=== PATIENT | female | born 1940 | race Caucasian/White ===

== ENCOUNTER 2017-10-14 17:25 | Inpatient (IN) | payer OTHER ==
[2017-10-14] MEDS: LACTATED RINGER'S 1,000 ML IV (18:08)
[2017-10-14 18:12] LABS: ADD MAN DIFF? NO
[2017-10-14 18:14] LABS: BASOPHIL # 0.1 10^3/ul (0.0-0.1); BASOPHILS % 0.5 % (0.0-2.0); EOSINOPHILS # 0.1 10^3/ul (0.0-0.5); HEMATOCRIT 37.2 % (37.0-47.0); HEMOGLOBIN 12.8 g/dl (12.0-16.0); LYMPHOCYTES # 1.5 10^3/ul (0.8-2.9); LYMPHOCYTES % 12.1 % (15.0-51.0); MEAN CORPUSCULAR HEMOGLOBIN 31.3 pg (29.0-33.0); MEAN CORPUSCULAR HGB CONC 34.4 g/dl (32.0-37.0); MONOCYTE # 0.7 10^3/ul (0.3-0.9); MONOCYTES % 5.4 % (0.0-11.0); NEUTROPHIL # 9.6 10^3/ul (1.6-7.5); NEUTROPHILS % 80.7 % (39.0-77.0); PLATELET COUNT 265 10^3/UL (140-415); RED BLOOD COUNT 4.09 10^6/ul (4.20-5.40); RED CELL DISTRIBUTION WIDTH 12.9 % (11.5-14.5)
[2017-10-14 18:34] LABS: ALANINE AMINOTRANSFERASE 20 IU/L (13-69); ALBUMIN 3.6 g/dl (3.3-4.9); ALBUMIN/GLOBULIN RATIO 1.24; ALKALINE PHOSPHATASE 56 IU/L (42-121); ANION GAP 10 (8-16); ASPARTATE AMINO TRANSFERASE 17 IU/L (15-46); BILIRUBIN,INDIRECT 0.6 mg/dl (0-1.1); BILIRUBIN,TOTAL 0.6 mg/dl (0.2-1.3); BLOOD UREA NITROGEN 13 mg/dl (7-20); CALCIUM 9.7 mg/dl (8.4-10.2); CARBON DIOXIDE 29 mmol/L (21-31); CHLORIDE 100 mmol/L (97-110); CREATININE 0.69 mg/dl (0.44-1.00); GLUCOSE 159 mg/dl (70-220); POTASSIUM 4.7 mmol/L (3.5-5.1); SODIUM 134 mmol/L (135-144); TOTAL PROTEIN 6.5 g/dl (6.1-8.1)
[2017-10-14 18:35] LABS: URINE BLOOD (Dip) POC Negative (NEGATIVE); URINE GLUCOSE (Dip) POC Negative (NEGATIVE); URINE KETONES (Dip) POC Negative (NEGATIVE); URINE LEUKOCYTE EST (Dip) POC Negative (NEGATIVE); URINE NITRITE (Dip) POC Negative (NEGATIVE); URINE TOTAL PROTEIN POC Negative (NEGATIVE)
[2017-10-14 18:54] LABS: TROPONIN-I < 0.010 ng/ml (0.000-0.120)
[2017-10-14] MEDS ORDERED: NACL 0.9% 3 ML SYG IV (22:00)
[2017-10-15] MEDS ORDERED: clonAZEPAM 0.5 MG TAB PO (06:00)
[2017-10-15 06:17] LABS: ADD MAN DIFF? NO
[2017-10-15 06:30] LABS: WHITE BLOOD COUNT 7.4 10^3/ul (4.8-10.8)
[2017-10-15 06:30] LABS: BASOPHIL # 0.1 10^3/ul (0.0-0.1); BASOPHILS % 1.1 % (0.0-2.0); EOSINOPHILS # 0.4 10^3/ul (0.0-0.5); EOSINOPHILS % 5.2 % (0.0-7.0); HEMATOCRIT 37.9 % (37.0-47.0); HEMOGLOBIN 12.9 g/dl (12.0-16.0); LYMPHOCYTES # 2.2 10^3/ul (0.8-2.9); MEAN CORPUSCULAR HEMOGLOBIN 31.6 pg (29.0-33.0); MEAN CORPUSCULAR VOLUME 92.9 fl (82.0-101.0); MEAN PLATELET VOLUME 10.1 fl (7.4-10.4); MONOCYTE # 0.6 10^3/ul (0.3-0.9); MONOCYTES % 8.7 % (0.0-11.0); NEUTROPHILS % 54.5 % (39.0-77.0); PLATELET COUNT 260 10^3/UL (140-415); RED BLOOD COUNT 4.08 10^6/ul (4.20-5.40); RED CELL DISTRIBUTION WIDTH 12.9 % (11.5-14.5)
[2017-10-15 06:46] LABS: ALANINE AMINOTRANSFERASE 26 IU/L (13-69); ALBUMIN 3.2 g/dl (3.3-4.9); ALBUMIN/GLOBULIN RATIO 1.14; ALKALINE PHOSPHATASE 53 IU/L (42-121); ANION GAP 6 (8-16); ASPARTATE AMINO TRANSFERASE 17 IU/L (15-46); BILIRUBIN,INDIRECT 0.9 mg/dl (0-1.1); BILIRUBIN,TOTAL 0.9 mg/dl (0.2-1.3); BLOOD UREA NITROGEN 10 mg/dl (7-20); CALCIUM 9.3 mg/dl (8.4-10.2); CARBON DIOXIDE 31 mmol/L (21-31); CHLORIDE 104 mmol/L (97-110); CHOL/HDL RATIO 3.9 RATIO; CHOLESTEROL 163 mg/dl (100-200); CREATININE 0.75 mg/dl (0.44-1.00); GLUCOSE 124 mg/dl (70-220); HDL CHOLESTEROL 41 mg/dl (33-92); LDL CHOLESTEROL,CALCULATED 108 mg/dl; MAGNESIUM 1.7 mg/dl (1.7-2.5); POTASSIUM 4.9 mmol/L (3.5-5.1); SODIUM 136 mmol/L (135-144); TRIGLYCERIDES 71 mg/dl (0-149)
[2017-10-15 09:33] LABS: HEMOGLOBIN A1C 6.6 % (0-5.9)
[2017-10-15] MEDS: DULOXETINE 30 MG CAP DR PO (10:47)
[2017-10-15] MEDS: TIOTROPIUM 18 MCG CAPSULE INHA DEV INH (10:47)
[2017-10-15] MEDS: OXYBUTYNIN (XL) 5 MG TAB PO (10:48)
[2017-10-15] MEDS: AMLODIPINE 10 MG TAB PO (10:48)
[2017-10-15] MEDS: HEPARIN 5,000 UNIT/0.5 ML VIAL SC ×2 (10:50→21:04)
[2017-10-15] MEDS: ACETAMINOPHEN 325 MG TAB PO (11:08)
[2017-10-15] MEDS: clonAZEPAM 0.5 MG TAB PO (11:08)
[2017-10-15] MEDS: metFORMIN 500 MG TAB PO ×2 (13:36→17:42)
[2017-10-15] MEDS: HYDROCODONE/APAP (5/325) TAB PO ×2 (14:39→20:49)
[2017-10-16] MEDS: clonAZEPAM 0.5 MG TAB PO (01:12)
[2017-10-16] MEDS: HYDROCODONE/APAP (5/325) TAB PO ×2 (06:48→11:29)
[2017-10-16 07:23] LABS: FOLATE 16.2 ng/ml (2.8-20.0)
[2017-10-16] MEDS: DULOXETINE 30 MG CAP DR PO (08:37)
[2017-10-16] MEDS: metFORMIN 500 MG TAB PO ×2 (08:38→17:22)
[2017-10-16] MEDS: OXYBUTYNIN (XL) 5 MG TAB PO (08:38)
[2017-10-16] MEDS: AMLODIPINE 10 MG TAB PO (08:39)
[2017-10-16] MEDS: HEPARIN 5,000 UNIT/0.5 ML VIAL SC ×2 (08:45→20:40)
[2017-10-16] MEDS: TIOTROPIUM 18 MCG CAPSULE INHA DEV INH (08:50)
[2017-10-16] MEDS: morphine (ER) 15 MG TAB PO ×2 (13:27→20:43)
[2017-10-16] MEDS: FLUTICASONE/VILANTEROL 200-25 INH DEVICE INH (14:13)
[2017-10-16] MEDS ORDERED: metFORMIN 500 MG TAB PO (18:00)
[2017-10-16] MEDS: traZODone 100 MG TAB PO (20:37)
[2017-10-16] MEDS: MIRTAZAPINE 15 MG TAB PO (20:37)
[2017-10-17] MEDS: OXYBUTYNIN (XL) 5 MG TAB PO (08:55)
[2017-10-17] MEDS: DULOXETINE 30 MG CAP DR PO (08:56)
[2017-10-17] MEDS: AMLODIPINE 10 MG TAB PO (08:56)
[2017-10-17] MEDS: TIOTROPIUM 18 MCG CAPSULE INHA DEV INH (08:56)
[2017-10-17] MEDS: metFORMIN 500 MG TAB PO ×2 (08:57→18:31)
[2017-10-17] MEDS: FLUTICASONE/VILANTEROL 200-25 INH DEVICE INH (08:57)
[2017-10-17] MEDS: HEPARIN 5,000 UNIT/0.5 ML VIAL SC ×2 (09:01→21:03)
[2017-10-17] MEDS: morphine (ER) 15 MG TAB PO ×2 (09:03→21:00)
[2017-10-17] MEDS: traZODone 100 MG TAB PO (21:01)
[2017-10-17] MEDS: HYDROCODONE/APAP (5/325) TAB PO (21:01)
[2017-10-17] MEDS: MIRTAZAPINE 15 MG TAB PO (21:01)
[2017-10-18] MEDS: AMLODIPINE 10 MG TAB PO ×2 (09:00→17:59)
[2017-10-18] MEDS: DULOXETINE 30 MG CAP DR PO (09:14)
[2017-10-18] MEDS: morphine (ER) 15 MG TAB PO (09:14)
[2017-10-18] MEDS: FLUTICASONE/VILANTEROL 200-25 INH DEVICE INH (09:15)
[2017-10-18] MEDS: TIOTROPIUM 18 MCG CAPSULE INHA DEV INH (09:15)
[2017-10-18] MEDS: metFORMIN 500 MG TAB PO ×2 (09:15→17:59)
[2017-10-18] MEDS: OXYBUTYNIN (XL) 5 MG TAB PO (09:15)
[2017-10-18] MEDS: HEPARIN 5,000 UNIT/0.5 ML VIAL SC (09:21)
[2017-10-18] MEDS: HYDROCODONE/APAP (5/325) TAB PO (12:52)
[2017-10-18] MEDS: DOCUSATE SODIUM 100 MG CAP PO (12:55)
[2017-10-18] MEDS: BISACODYL (EC) 5 MG TAB PO (12:55)
[2017-10-18] MEDS: ARTIFICIAL TEARS 15 ML OPH BOTH EYES ×2 (15:44→15:45)
== END 2017-10-18 18:20 | DRG 552 ==
LOC: MS2 10-16 06:30 → E/R 17:25 → MS2 19:52
DX: M48.061 Spinal stenosis, lumbar region without neurogenic claudication (principal); G95.20 Unspecified cord compression; M51.06 Intervertebral disc disorders with myelopathy, lumbar region; I49.5 Sick sinus syndrome; M41.9 Scoliosis, unspecified; E11.9 Type 2 diabetes mellitus without complications; R26.0 Ataxic gait; R53.1 Weakness; F32.9 Major depressive disorder, single episode, unspecified; F41.9 Anxiety disorder, unspecified; E78.5 Hyperlipidemia, unspecified; K21.9 Gastro-esophageal reflux disease without esophagitis; I10 Essential (primary) hypertension; F17.210 Nicotine dependence, cigarettes, uncomplicated; M54.5 Low back pain; M79.1 Myalgia; Z79.84 Long term (current) use of oral hypoglycemic drugs; Z95.0 Presence of cardiac pacemaker; Z85.118 Personal history of other malignant neoplasm of bronchus and lung
CPT/HCPCS: 36415; 70450; 71045; 72131; 80053; 80061; 81003; 82607; 82746; 82962; 83036; 83735; 84443; 84484; 85025; 93306; 93880; 93922; 93970; 97110; 97116; 97161; 99285-25